=== PATIENT | male | born 1995 | race African-American/Black ===

== ENCOUNTER 2020-01-14 12:56 | Emergency (ER) | payer OTHER ==
[~2020-01-14] VITALS: Ht 182.9 cm; Wt 70.3 kg
[2020-01-14] MEDS ORDERED: ONDANSETRON HCL/PF 4 MG/2 ML VIAL ONE (12:57)
[2020-01-14] MEDS ORDERED: MORPHINE SULFATE INJ 2 MG/ML DISP.SYRIN ONE (12:58)
[2020-01-14] MEDS ORDERED: MORPHINE SULFATE INJ 4 MG/ML DISP.SYRIN ONE ×2 (12:58→15:11)
--- NOTE | 2020-01-14 13:01 | NUR ---
BIBFRIEND FROM FRIEND'S HOUSE. TO ER BED 2. AAOX4. NOT IN RESP DISTRESS. BROUGHT IN ON WHEELCHAIR. CAME IN FOR L ANKLE PAIN WITH OPEN WOUND ON THE L LATERAL MALLEOLUS MEASURING 6CM X 3CM MOD BLEEDING. PAIN 10/10. NOT DEFORMITY NOTED. SENSATION FELT AND ABLE TO MOVE TOES. PEDAL PULSE APPRECIATED. PT WAS PLAYING BASKETBALL. DID FALL NOR TRIP. DENIES HT TRAUMA. MD WAS AT BEDSIDE. IV LINE OBTAINED ON R AC 18G. BLOOD DRAWN AND GIVEN TO WIDE PIECE GOODS INSPECTOR AT BEDSIDE.
[2020-01-14 13:26] LABS: BASOPHILS # (AUTO) 0.1 /CMM (0.0-0.2); BASOPHILS % (AUTO) 0.8 % (0.0-2.0); HEMATOCRIT 49 % (39-51); HEMOGLOBIN 16.9 g/dL (13.5-17.5); LYMPHOCYTES # (AUTO) 2.2 /CMM (0.8-4.8); MEAN CORPUSCULAR HGB CONC 34 g/dl (31.0-36.0); MEAN CORPUSCULAR VOLUME 93 fL (80-96); MONOCYTES # (AUTO) 0.6 /CMM (0.1-1.30); MONOCYTES % (AUTO) 8.6 % (2.0-12.0); NEUTROPHILS # (AUTO) 3.6 /CMM (1.8-8.9); NEUTROPHILS % (AUTO) 55.6 % (43.0-81.0); PLATELET COUNT (AUTO) 312 /CMM (150-450); WHITE BLOOD COUNT (AUTO) 6.5 K/uL (4.3-11.0)
[2020-01-14] MEDS ORDERED: CEFAZOLIN 1 GM in IV D5W 50 ML IV ONE (13:30)
[2020-01-14] MEDS ORDERED: MORPHINE SULFATE INJ 2 MG/ML DISP.SYRIN IV ONE ×2 (13:30→15:00)
[2020-01-14] MEDS ORDERED: ONDANSETRON HCL/PF 4 MG/2 ML VIAL IVP ONE (13:30)
[2020-01-14 13:36] LABS: CALCIUM, SERUM 9.3 mg/dL (8.5-10.1); CREATININE 1.2 mg/dL (0.6-1.3); POTASSIUM 3.6 mmol/L (3.5-5.1)
--- NOTE | 2020-01-14 14:38 | NUR ---
CALLED [employer], BOMB SQU[employer] OFFICER PAGED
--- NOTE | 2020-01-14 15:03 | NUR ---
CALLED [employer], PAGED AIRCRAFT SYSTEMS TECHNICIAN
[2020-01-14] MEDS ORDERED: TDAP [DIPH/PERTUSSIS/TET] 0.5 ML VIAL IM ONE ×2 (15:30→15:47)
--- NOTE | 2020-01-14 15:42 | NUR ---
CALLED [facility] REYNALDO FLOR
[2020-01-14] MEDS ORDERED: LIDOCAINE 0.5%-EPI 1:200,000 50 ML VIAL ONE (15:56)
[2020-01-14] MEDS ORDERED: LIDOCAINE HCL/PF 1% 30 ML VIAL TP ONE (16:00)
[2020-01-14] MEDS ORDERED: ONDANSETRON HCL/PF 4 MG/2 ML VIAL IVP PRN (16:30)
[2020-01-14] MEDS ORDERED: Z GUARD REMEDY 2 OZ OINT TP PRN (16:30)
[2020-01-14] MEDS ORDERED: HYDROMORPHONE INJ 2 MG/ML DISP.SYRIN IV PRN (16:30)
[2020-01-14] MEDS ORDERED: MAGNESIUM HYDROXIDE 30 ML UDC PO PRN (16:30)
[2020-01-14] MEDS ORDERED: HYDROCODONE/APAP 5/325MG TABLET PO PRN (16:30)
[2020-01-14] MEDS ORDERED: MAG HYDROX/AL HYDROX/SIMETH 30 ML UDC PO PRN (16:30)
[2020-01-14] MEDS ORDERED: ACETAMINOPHEN 325 MG TABLET PO PRN (16:30)
--- NOTE | 2020-01-14 16:45 | NUR ---
PAGED ELOY FONSECA FOR UPDATE
--- NOTE | 2020-01-14 17:31 | NUR ---
COVID SWAB DONE AND SENT TO LAB
--- NOTE | 2020-01-14 17:43 | NUR ---
Patient discharged to home in stable condition. Written and verbal after care instructions given. Patient verbalizes understanding of instruction. IV removed. Catheter intact and site benign. Pressure and 4x4 applied to site. No bleeding noted. PT AMB ON CRUTCHES UPON LEAVING ED.
[2020-01-14 17:44] VITALS: BP 132/89
[2020-01-14] MEDS ORDERED: CEFAZOLIN 2 GM in IV D5W 100 ML IV SCH (21:00)
== END 2020-01-14 17:44 | disposition home or self-care (01) ==
LOC: ER 13:03
DX: S82.302B Unspecified fracture of lower end of left tibia, initial encounter for open fracture type I or II (principal); S93.05XA Dislocation of left ankle joint, initial encounter; W18.30XA Fall on same level, unspecified, initial encounter; Y93.67 Activity, basketball; Y92.89 Other specified places as the place of occurrence of the external cause; Z20.828 Contact with and (suspected) exposure to other viral communicable diseases
CPT/HCPCS: 12004; 29505; 36415; 73590; 73610; 80048; 85025; 85730; 86850; 87081; 87426; 90471; 90715; 93005; 96365; 96375; 96376; 99285; A6403; C9803; J0690 ×2; J2270 ×3; J2405; J3490 ×2; J7060 ×2